=== PATIENT | male | born 1965 | race Caucasian/White ===

== ENCOUNTER 2025-08-04 20:46 | Emergency (ER) | payer MEDICAID ==
[~2025-08-04] VITALS: Ht 157.5 cm; Wt 70.5 kg
[~2025-08-04 20:46] MED LIST: ASPI81TA40 PO; BENA5TAB40; HYDR12.54
[2025-08-04 22:58] LABS: PLATELET COUNT (AUTO) 265 K/uL (150-450); RED BLOOD CELL COUNT(AUTO) 3.98 MIL/uL (4.50-5.90); RED CELL DISTRIBUTION WIDTH 14.1 % (11.5-14.5); WHITE BLOOD COUNT (AUTO) 6.6 K/uL (4.5-11.0)
[2025-08-04] MEDS: ACETAMINOPHEN 500 MG TABLET PO ONE (22:59)
[2025-08-04 23:06] LABS: APPEARANCE,URINE CLEAR (CLEAR); GLUCOSE, URINE (UA) NEGATIVE (NEGATIVE); LEUKOCYTE ESTERASE ,URINE NEGATIVE (NEGATIVE); NITRATE,URINE NEGATIVE (NEGATIVE); OCCULT BLOOD,URINE TRACE (NEGATIVE); SPECIFIC GRAVITIY, URINE 1.003 (1.003-1.030)
[2025-08-04 23:11] LABS: SQUAMOUS EPITHELIAL CELL,UR Few /LPF (None Seen)
[2025-08-04 23:13] LABS: CALCIUM, TOTAL 9.1 mg/dL (8.8-10.5); CREATININE 0.91 mg/dL (0.60-1.30); GLOMERULAR FILTR. RATE CALC > 60 mL/min (>60); GLUCOSE,RANDOM 70 mg/dL (70-110); SODIUM SERUM 139 mmol/L (136-145); UREA NITROGEN, BLOOD 7 mg/dL (7-18)
[2025-08-04 23:15] LABS: PH,URINE DRUG SCREEN 6.5 (5.0-8.0)
[2025-08-04 23:22] LABS: AMPHET/METH SCREEN,URINE NEGATIVE (NEGATIVE); BARBITURATE SCREEN, URINE NEGATIVE (NEGATIVE); CANNABINOID SCREEN,URINE NEGATIVE (NEGATIVE); COCAINE SCREEN,URINE NEGATIVE (NEGATIVE); METHADONE SCREEN, URINE NEGATIVE (NEGATIVE)
[2025-08-04 23:23] LABS: ALCOHOL, URINE DRUG SCREEN NEGATIVE (NEGATIVE)
[2025-08-05] MEDS ORDERED: GABA-1181 PO (00:13)
[2025-08-05] MEDS ORDERED: METH-812 PO (00:13)
[2025-08-05 00:23] VITALS: BP 145/84; PULSE 78; RESP 18; TEMP 97.3; O2SAT 98
[2025-08-05] MEDS ORDERED: CARB-49 PO (10:25)
== END 2025-08-05 00:53 | disposition home or self-care (01) ==
LOC: EMS 20:46
DX: M54.32 Sciatica, left side (principal); I10 Essential (primary) hypertension; Z79.82 Long term (current) use of aspirin; Z79.899 Other long term (current) drug therapy
CPT/HCPCS: 80048; 80307; 81001; 83735; 85025; 99283

== ENCOUNTER 2025-08-05 10:14 | Emergency (ER) | payer MEDICAID ==
[~2025-08-05] VITALS: Ht 167.6 cm; Wt 66.9 kg
[~2025-08-05 10:14] MED LIST changes: +GABA-1181 PO; +METH-812 PO
[2025-08-05] MEDS ORDERED: CARB-49 PO (10:25)
[2025-08-05 10:44] LABS: PLATELET COUNT (AUTO) 252 K/uL (150-450); RED BLOOD CELL COUNT(AUTO) 3.85 MIL/uL (4.50-5.90); RED CELL DISTRIBUTION WIDTH 14.2 % (11.5-14.5); WHITE BLOOD COUNT (AUTO) 4.3 K/uL (4.5-11.0)
[2025-08-05 10:59] LABS: CALCIUM, TOTAL 8.6 mg/dL (8.8-10.5); CREATININE 1.12 mg/dL (0.60-1.30); GLOMERULAR FILTR. RATE CALC > 60 mL/min (>60); GLUCOSE,RANDOM 180 mg/dL (70-110); SODIUM SERUM 137 mmol/L (136-145); UREA NITROGEN, BLOOD 13 mg/dL (7-18)
[2025-08-05 11:09] LABS: TROPONIN I-HIGH SENSITIVITY 40 ng/L (<76)
[2025-08-05] MEDS: ACETAMINOPHEN 325 MG TABLET PO ONE (11:33)
[2025-08-05 12:06] LABS: TROPONIN I-HIGH SENSITIVITY 42 ng/L (<76)
[2025-08-05 13:07] LABS: TROPONIN I-HIGH SENSITIVITY 41 ng/L (<76)
[2025-08-05 14:05] VITALS: TEMP 98.2
[2025-08-05] MEDS: CARBIDOPA/LEVODOPA 25-250 MG TABLET PO ONE (14:05)
[2025-08-05 18:45] VITALS: BP 154/97; PULSE 84; RESP 15; O2SAT 99
== END 2025-08-05 19:42 | disposition home or self-care (01) ==
LOC: EMS 10:14
DX: R07.89 Other chest pain (principal); F41.9 Anxiety disorder, unspecified; I10 Essential (primary) hypertension; Z79.899 Other long term (current) drug therapy
CPT/HCPCS: 71045; 80048; 83880; 84484; 85025; 93005; 99285; 36415-L1; 36415-TC